=== PATIENT | male | born 1980 | race Caucasian/White ===

== ENCOUNTER → 2016-05-09 | Outpatient (CLI) | payer OTHER ==
[2016-05-09 08:06] LABS: Blood Urea Nitrogen 21 mg/dL (9-20); Non-African American GFR(MDRD) >60 (>60 ml/min/1.73 sqM)
--- NOTE | 2016-05-09 10:50 | MR ---
EXAMINATION TYPE: MR lumbar spine wo/w con DATE OF EXAM: 05/09/2016 9:28 AM COMPARISON: NONE HISTORY: lumbar stenosis, radiculopathy CONTRAST: 20 mL intravenous MultiHance. TECHNIQUE: Multiplanar, multisequence images of the lumbar spine were acquired. FINDINGS: L5-S1: There is a central disc herniation with moderate epidural space impression. This is slightly r ight of midline. Exiting nerve root compression or thecal sac compression is not identified. No spin al canal stenosis. No foraminal stenosis. Endplate changes are present.. L4-L5: There is a large left paracentral disc herniation. This is moderate anterior thecal sac compre ssion. No spinal canal stenosis. No foraminal stenosis. . L3-L4: No significant disc bulge or disc herniation. No spinal canal stenosis. No foraminal stenosi s. Neural foramen are patent.. L2-L3: No significant disc bulge or disc herniation. No spinal canal stenosis. No foraminal stenosi s. Neural foramen are patent.. L1-L2: No significant disc bulge or disc herniation. No spinal canal stenosis. No foraminal stenosi s. Neural foramen are patent.. T12-L1: No significant disc bulge or disc herniation. No spinal canal stenosis. No foraminal stenos is. Neural foramen are patent.. No abnormal enhancement. IMPRESSION: 1. Right paracentral disc herniation L5-S1 without nerve root compression or thecal sac compression. 2. Moderate left paracentral disc herniation with mild anterior thecal sac compression without stenos is.
== END | disposition home or self-care (01) ==
LOC: RADMRIMAIN 07:34
PROVIDERS: ATTEND Orthopaedic Surgery
DX: M51.16 Intervertebral disc disorders with radiculopathy, lumbar region (principal); M51.17 Intervertebral disc disorders with radiculopathy, lumbosacral region
CPT/HCPCS: 82565; 84520; 72158; 36415; A9577

== ENCOUNTER → 2016-05-22 | Outpatient (CLI) | payer OTHER ==
[2016-05-22 08:46] LABS: EKG EKG PERFORMED
[2016-05-22 08:49] LABS: Basophils # (A) 0.1 k/uL (0-0.2); Basophils % (A) 1 %; CH 28.2; CHCM 35.7; Eosinophils # (A) 0.1 k/uL (0-0.7); Eosinophils % (A) 2 %; HCT 48.6 % (39.0-53.0); HDW 3.31; HGB 16.4 gm/dL (13.0-17.5); Luc # (Auto) 0.08; Luc % (Auto) 1; Lymphocytes # (A) 1.5 k/uL (1.0-4.8); Lymphocytes % (A) 21 %; MCH 26.8 pg (25.0-35.0); MCHC 33.7 g/dL (31.0-37.0); MCV 79.4 fL (80.0-100.0); Mean Platelet Volume 8.2; Monocytes # (A) 0.4 k/uL (0-1.0); Monocytes % (A) 5 %; Neutrophils % (A) 71 %; RBC 6.11 m/uL (4.30-5.90); WBC (Perox) 7.01
[2016-05-22 09:05] LABS: Anion Gap 13 mmol/L; Carbon Dioxide 29 mmol/L (22-30); Chloride 103 mmol/L (98-107); Potassium 4.5 mmol/L (3.5-5.1); Sodium 145 mmol/L (137-145)
== END | disposition home or self-care (01) ==
LOC: LABPAT 08:27
PROVIDERS: ATTEND Orthopaedic Surgery
DX: Z01.810 Encounter for preprocedural cardiovascular examination (principal); M75.41 Impingement syndrome of right shoulder; I10 Essential (primary) hypertension
CPT/HCPCS: 36415; 80051; 85025; 93005

== ENCOUNTER 2016-05-27 06:05 | Day surgery (SDC) | payer OTHER ==
[2016-05-22 09:41] VITALS: BMI 36.5
--- NOTE | 2016-05-26 14:00 | HP ---
DATE OF ADMISSION: 05/27/2016 Mickey Jorgensen is a 36-year-old patient seen with progressive right shoulder pain. After having treatment options discussed, he elected to proceed with right shoulder arthroscopy. Consent regarding the procedure was obtained. Past medical history is hyperlipidemia, gastroesophageal reflux disease. His past surgical history is lumbar surgery. DAILY MEDICATIONS: 1. Atorvastatin. 2. Losartan. 3. Prilosec. 4. Prozac. SOCIAL HISTORY: Patient denies current tobacco use. Physical evaluation of right shoulder: Flexion is 160 degrees, abduction 150 degrees, external rotation is 50 degrees with some pain and weakness. There is tenderness along the anterolateral acromion rotator cuff insertion site. Impingement is positive at 100 degrees, distal neurovascular exam is intact. Radiographs of the right shoulder revealed a type 2 anterior acromion and MRI of the right shoulder revealed a partial rotator cuff tear. IMPRESSION: Right shoulder impingement with partial rotator cuff tear. PLAN: Right shoulder arthroscopy with subacromial decompression, possible arthroscopic rotator cuff repair and debridement.
[~2016-05-27 06:05] MED LIST: DEXAMETHASONE SOD PHOSPHATE 10 MG/ML 1 ML VIAL IV ONE; HYDROmorphone 1 MG/ML 1 ML SYRINGE IVP PRN; LACTATED RINGERS 1,000 ML IV SCH; LIDOCAINE 1% 20 ML VIAL (10MG/ML) FOR IV START INTRADERMA PRN; MIDAZOLAM 2 MG/2 ML VIAL IV PRN; ONDANSETRON 4 MG/2 ML VIAL IVP ONE; SCOPOLAMINE 1.5MG/72HR PATCH TRANSDERM ONE; ceFAZolin 2 GM in SODIUM CHLORIDE 0.9% 100 ML IVPB ONE; fentaNYL (PF) 50 MCG/ML 20 ML VIAL IVP PRN
[2016-05-27] MEDS ORDERED: NEOSTIGMINE 1 MG/ML 10 ML VIAL ONE (07:28)
[2016-05-27] MEDS ORDERED: PROPOFOL 10 MG/ML 20 ML VIAL IV ONE (07:28)
[2016-05-27] MEDS ORDERED: SUCCINYLCHOLINE CHLORIDE 100 MG/5 ML SYR IV ONE (07:28)
[2016-05-27] MEDS ORDERED: MIDAZOLAM 2 MG/2 ML VIAL ONE (07:28)
[2016-05-27] MEDS ORDERED: fentaNYL (PF) 50 MCG/ML 2 ML AMP ONE (07:28)
[2016-05-27] MEDS ORDERED: GLYCOPYRROLATE 0.2 MG/ML 2 ML VIAL ONE (07:28)
[2016-05-27] MEDS ORDERED: ROCURONIUM BROMIDE 10 MG/ML 10 ML VIAL IV ONE (07:28)
[2016-05-27] MEDS ORDERED: LIDOCAINE 2%-EPI 1:100,000 20 ML VIAL ONE (07:28)
[2016-05-27] MEDS ORDERED: LIDOCAINE 1% INJ 10MG/ML (20 ML MDV) ONE (07:28)
[2016-05-27] MEDS ORDERED: ROPIVACAINE 5 MG/ML 30 ML VIAL ONE (07:28)
[2016-05-27] MEDS ORDERED: LACTATED RINGERS 1,000 ML IV ONE (09:03)
[2016-05-27 09:43] VITALS: TEMP 98.1
--- NOTE | 2016-05-27 09:45 | P.OP ---
Date of Procedure: 05/27/16 Preoperative Diagnosis: Right shoulder impingement Postoperative Diagnosis: 1. Right shoulder rotator cuff tear 2. Right shoulder impingement 3. Right shoulder partial long head biceps tendon tear 4. Right shoulder superficial labral tear Procedure(s) Performed: 1. Right shoulder arthroscopic rotator cuff repair 2. Right shoulder arthroscopic subacromial decompression 3. Right shoulder arthroscopic biceps tenotomy 4. Right shoulder arthroscopic debridement labral tear Implants: 4-valeris peek anchors Anesthesia: GETA, regional (Shoulder block) Surgeon: Joel Estes Turpentine Farmer #1: Socrates Navarrete Estimated Blood Loss (ml): 10 Pathology: none sent Condition: stable Disposition: PACU Indications for Procedure: 36-year-old patient seen with progressive right shoulder pain. After having treatment options discussed, he elected to proceed with right shoulder arthroscopy. Operative Findings: See description of procedure Description of Procedure: Patient underwent a shoulder block by department of anesthesia. The patient was then taken to the operative suite. The patient underwent a general anesthetic by the department of anesthesia. The patient was placed into a lateral position and secured. There was appropriate padding of the bony prominence. Right shoulder was then prepped and draped in normal sterile orthopedic fashion. We placed the extremity in 10 pounds of longitudinal traction. A posterior incision was now made for a posterior working portal site. The trocar and cannula were inserted into the glenohumeral joint. Arthroscopy was initiated. Spinal needle was now inserted anteriorly, to ascertain the anterior working portal site. An incision was now made in that area, a trocar was inserted followed by a probe. There was some superficial tearing of the anterior superior labral area. Partial tearing and hyperemia long head biceps tendon was present. The glenohumeral joint itself appeared unremarkable. The inferior and posterior labrum were intact. There were no loose bodies. An arthroscopic biceps tenotomy was performed. I debrided the labral tear down to stable tissue. The residual labrum was probed and found to be stable. Instruments now removed from glenohumeral joint. Utilizing the posterior working portal site, the trocar and cannula were inserted into the subacromial space. Arthroscopy initiated. I made an incision 2 fingerbreadths lateral to the acromion. I introduced my trocar followed by my ArthroCare ablator. I now began ablating thick subacromial bursal tissue, which exposed the undersurface of the anterior acromion. This was diminished subacromial space. There was a very prominent anterior acromion. A motorized bur was introduced and a subacromial decompression was performed. I also excised some osteophytes off the inferior aspect of the distal clavicle. The AC joint was visualized. There was some mild arthritis but not enough toward a Staci procedure. I now turned my attention to the distal rotator cuff tendon area. There was a 2 cm tear along the posterior aspect of the distal supraspinatus tendon. I now debrided the margins getting down to stable tissue the overall tear was now about 2.5 cm but freely mobile over the footprint. I abraded the footprint with a motorized bur. I now made an mortgage operations manager portal site off the lateral acromion. I now introduced 2 medial anchors with 2 sutures each. I now passed all 8 limbs of suture through good bites of rotator cuff tendon. I now crisscrossed the sutures and inserted 2 lateral anchors compressing the tendon along the footprint very nicely. Residual suture limbs were clipped. The repair was probed and found to be stable. I injected 1 mL of Allogen into the footprint repair site. Instruments now removed from the portal sites. All portal sites were approximated with nylon suture. Sterile dressings were applied followed by a shoulder immobilizer. Juan Ramon MARTINES assisted with the procedure. The patient was awakened, transferred to a bed, and taken to recovery in stable condition.
[2016-05-27 12:31] VITALS: RESP 16
[2016-05-27 12:52] VITALS: BP 122/72; PULSE 88
== END 2016-05-27 12:53 | disposition home or self-care (01) ==
LOC: OR 06:05
PROVIDERS: ATTEND Orthopaedic Surgery
DX: M75.101 Unspecified rotator cuff tear or rupture of right shoulder, not specified as traumatic (principal); S46.111A Strain of muscle, fascia and tendon of long head of biceps, right arm, initial encounter; S43.491A Other sprain of right shoulder joint, initial encounter; M75.41 Impingement syndrome of right shoulder; I10 Essential (primary) hypertension; E78.5 Hyperlipidemia, unspecified; K21.9 Gastro-esophageal reflux disease without esophagitis; X58.XXXA Exposure to other specified factors, initial encounter; Z79.899 Other long term (current) drug therapy
CPT/HCPCS: 64415

== ENCOUNTER → 2017-06-29 | Outpatient (CLI) | payer OTHER ==
--- NOTE | 2017-06-29 18:05 | ECHOF ---
Referral Reason:R06.09 dyspnea on exertion MEASUREMENTS -------- HEIGHT: 172.7 cm WEIGHT: 113.4 kg BP: 141/86 RVIDd: 2.7 cm (< 3.3) IVSd: 1.2 cm (0.6 - 1.1) LVIDd: 5.6 cm (3.9 - 5.3) LVPWd: 1.2 cm (0.6 - 1.1) IVSs: 1.5 cm LVIDs: 3.6 cm LVPWs: 1.7 cm LAESV Index (A-L): 15.48 ml/m Ao Diam: 3.3 cm (2.0 - 3.7) AV Cusp: 2.3 cm (1.5 - 2.6) LA Diam: 3.4 cm (2.7 - 3.8) MV EXCURSION: 26.725 mm (> 18.000) MV EF SLOPE: 182 mm/s (70 - 150) EPSS: 0.5 cm MV E Octavio: 0.81 m/s MV DecT: 300 ms MV A Octavio: 0.32 m/s MV E/A Ratio: 2.52 RAP: 5.00 mmHg RVSP: 21.41 mmHg FINDINGS -------- Sinus rhythm. This was a technically adequate study. The left ventricular size is normal. There is mild concentric left ventricular hypertrophy. Overa ll left ventricular systolic function is normal with, an EF between 55 - 60 %. The right ventricle is normal in size and function. Normal LA size by volume 22+/-6 ml/m2. The right atrium is normal in size. The aortic valve is trileaflet, and appears structurally normal. No aortic stenosis or regurgitation. The mitral valve is normal. There is trace mitral regurgitation. Trace tricuspid regurgitation present. Right ventricular systolic pressure is normal at < 35 mmHg. There is no evidence of pulmonary hypertension. Trace/mild (physiologic) pulmonic regurgitation. The aortic root size is normal. Normal inferior vena cava with normal inspiratory collapse consistent with estimated right atrial pre ssure of 5 mmHg. The pericardium is normal. There is no pericardial effusion. CONCLUSIONS -------- 1. Sinus rhythm. 2. This was a technically adequate study. 3. The left ventricular size is normal. 4. There is mild concentric left ventricular hypertrophy. 5. Overall left ventricular systolic function is normal with, an EF between 55 - 60 %. 6. Normal LA size by volume 22+/-6 ml/m2. 7. The aortic valve is trileaflet, and appears structurally normal. No aortic stenosis or regurgitati on. 8. There is trace mitral regurgitation. 9. Trace tricuspid regurgitation present. 10. Right ventricular systolic pressure is normal at < 35 mmHg. 11. There is no evidence of pulmonary hypertension. 12. Trace/mild (physiologic) pulmonic regurgitation. 13. The aortic root size is normal. 14. There is no pericardial effusion. ASSEMBLY INSPECTOR HELPER: Dany Chadwick RDCS
== END | disposition home or self-care (01) ==
LOC: RADECHMAIN 15:45
PROVIDERS: ATTEND Family Medicine
DX: I08.8 Other rheumatic multiple valve diseases (principal)
CPT/HCPCS: 93306

== ENCOUNTER → 2017-10-22 | Outpatient (CLI) | payer OTHER ==
[2017-10-22 15:56] LABS: Basophils # (A) 0.1 k/uL (0-0.2); Basophils % (A) 1 %; Eosinophils # (A) 0.2 k/uL (0-0.7); Eosinophils % (A) 2 %; HGB 17.6 gm/dL (13.0-17.5); Lymphocytes % (A) 23 %; MCHC 33.9 g/dL (31.0-37.0); MCV 79.6 fL (80.0-100.0); Mean Platelet Volume 7.4; Monocytes # (A) 0.4 k/uL (0-1.0); Monocytes % (A) 5 %; Neutrophils # (A) 5.8 k/uL (1.3-7.7); Neutrophils % (A) 68 %; Platelet Count 189 k/uL (150-450); RBC 6.52 m/uL (4.30-5.90); RDW 15.7 % (11.5-15.5); WBC 8.6 k/uL (3.8-10.6)
[2017-10-22 16:14] LABS: ALT 70 U/L (21-72); AST 33 U/L (17-59); Albumin 4.6 g/dL (3.5-5.0); Alkaline Phosphatase 50 U/L (38-126); Anion Gap 13 mmol/L; Blood Urea Nitrogen 16 mg/dL (9-20); Calcium 9.2 mg/dL (8.4-10.2); Carbon Dioxide 28 mmol/L (22-30); Chloride 101 mmol/L (98-107); Cholesterol 161 mg/dL (<200); Creatine Kinase 191 U/L (55-170); Glucose 95 mg/dL (74-99); HDL Cholesterol 29 mg/dL (40-60); LDL Cholesterol,Calculated 74 mg/dL (0-99); Potassium 4.3 mmol/L (3.5-5.1); Sodium 142 mmol/L (137-145); Total Bilirubin 0.6 mg/dL (0.2-1.3); Triglycerides 288 mg/dL (<150)
[2017-10-22 16:44] LABS: Prostate Specific Antigen 0.75 ng/mL (0.00-4.00)
== END | disposition home or self-care (01) ==
LOC: LABWHC1 15:26
PROVIDERS: ATTEND Nurse Practitioner Adult Health
DX: I10 Essential (primary) hypertension (principal); E23.0 Hypopituitarism; E78.5 Hyperlipidemia, unspecified; Z77.011 Contact with and (suspected) exposure to lead
CPT/HCPCS: 36415; 80053; 80061; 82550; 83655; 84153; 85025

== ENCOUNTER → 2020-05-03 | Outpatient (CLI) | payer OTHER ==
--- NOTE | 2020-05-03 10:34 | XR ---
Right knee HISTORY: Trauma and pain 3 views the right knee Bone mineralization, joint spaces and alignment are maintained. No evident sizable joint effusion, th ere may be minimal suprapatellar joint fluid. IMPRESSION: No fracture or dislocation.
== END | disposition home or self-care (01) ==
LOC: RADXRMAIN 10:08
PROVIDERS: ATTEND Emergency Medicine
DX: S83.91XA Sprain of unspecified site of right knee, initial encounter (principal)

== ENCOUNTER → 2020-05-15 | Outpatient (CLI) | payer OTHER ==
--- NOTE | 2020-05-15 09:59 | XR ---
Right knee HISTORY: S83.91XD 3 views the right knee, correlation to prior exam dated 05/03/2020 There is no interval change. Subtle suprapatellar density noted. IMPRESSION: No fracture or dislocation. Possible joint effusion, consider knee MRI
== END | disposition home or self-care (01) ==
LOC: RADXRMAIN 09:19
PROVIDERS: ATTEND Emergency Medicine
DX: S83.91XD Sprain of unspecified site of right knee, subsequent encounter (principal)

== ENCOUNTER 2021-01-24 11:52 | Emergency (ER) | payer OTHER ==
[2021-01-24] MEDS ORDERED: ACETAMINOPHEN TAB 500 MG TAB PO STA (12:17)
[2021-01-24] MEDS ORDERED: IBUPROFEN 600 MG TAB PO STA (12:17)
[2021-01-24] MEDS ORDERED: SODIUM CHLORIDE 0.9% 1,000 ML IV STA (12:17)
[2021-01-24 13:10] LABS: ALT 37 U/L (4-49); AST 49 U/L (17-59); African American GFR (CKD) >90 (>60 ml/min/1.73 sqM); Albumin 3.8 g/dL (3.5-5.0); Alkaline Phosphatase 54 U/L (38-126); Anion Gap 11 mmol/L; Blood Urea Nitrogen 22 mg/dL (9-20); Calcium 8.6 mg/dL (8.4-10.2); Carbon Dioxide 27 mmol/L (22-30); Chloride 98 mmol/L (98-107); Glucose 140 mg/dL (74-99); Non-African American GFR(CKD) >90 (>60 ml/min/1.73 sqM); Potassium 3.3 mmol/L (3.5-5.1); Sodium 136 mmol/L (137-145); Total Bilirubin 0.8 mg/dL (0.2-1.3); Total Protein 6.4 g/dL (6.3-8.2)
[2021-01-24 13:20] LABS: Basophils % (A) 0 %; Eosinophils % (A) 0 %; HCT 43.7 % (39.0-53.0); HGB 15.6 gm/dL (13.0-17.5); Hyperchromasia Slight; Lymphocytes # (A) 0.7 k/uL (1.0-4.8); Lymphocytes % (A) 6 %; MCH 27.5 pg (25.0-35.0); MCHC 35.7 g/dL (31.0-37.0); MCV 77.2 fL (80.0-100.0); Mean Platelet Volume 7.8; Monocytes # (A) 0.3 k/uL (0-1.0); Monocytes % (A) 2 %; Neutrophils # (A) 9.9 k/uL (1.3-7.7); Neutrophils % (A) 91 %; Platelet Count 234 k/uL (150-450); Poikilocytosis Slight; RBC 5.66 m/uL (4.30-5.90); RDW 13.5 % (11.5-15.5); WBC 10.9 k/uL (3.8-10.6)
--- NOTE | 2021-01-24 13:20 | XR ---
EXAMINATION TYPE: XR chest 1V DATE OF EXAM: 01/24/2021 COMPARISON: NONE HISTORY: Shortness of breath TECHNIQUE: Single frontal view of the chest is obtained. FINDINGS: Interstitial pattern with patchy areas of bilateral infiltrate. No pleural effusion or pne umothorax. Heart size normal. Osseous structures appear intact. IMPRESSION: Correlate for interstitial pneumonitis with multifocal pneumonia.
[2021-01-24] MEDS ORDERED: ALBUTEROL HFA INHALER INHALATION STA (14:27)
[2021-01-24] MEDS ORDERED: CASIRIVIMAB/IMDEVIMAB (EUA) 1,200 MG in SODIUM CHLORIDE 0.9% 100 ML IVPB ONE (15:00)
[2021-01-24] MEDS ORDERED: SODIUM CHLORIDE 0.9% 50 ML IVPB ONE (15:30)
--- NOTE | 2021-01-24 16:07 | ED ---
SOB HPI - General Chief Complaint: Shortness of Breath Stated Complaint: Fever/Cough Time Seen by Provider: 01/24/21 11:56 Source: patient, EMS, RN notes reviewed Mode of arrival: EMS Limitations: no limitations - History of Present Illness Initial Comments: Patient is a 40-year-old male with history of hypertension, presenting to emergency Department via EMS with concerns of a cough and worsening shortness of breath. Patient tested positive for Covid 3 days ago, his symptoms began 3 days ago as well. He states his symptoms, if him hard and fast with body aches, fever, chills and a cough. He went to get tested and was positive. He states today the coughing got much worse and he felt really short of breath. He also has been battling fevers at home and does not feel like they are coming down with Tylenol and Motrin. He last took Tylenol earlier this morning, Motrin was about 3 hours ago however he only took 200 mg of Motrin and only 500 mg of Tylenol. He denies any chest pains, no abdominal pain, no nausea or vomiting, no rashes. He is a former smoker, stopped about 5 years ago, no history of asthma. Patient denies any further complaints. Upon arrival to the ER, his temperatures 103.0, pulse is 110, 90% on room air. - Related Data Home Medications Medication Instructions Recorded Confirmed Cholecalciferol [Vitamin D3 (25 5,000 unit PO DAILY 01/08/15 01/24/21 Mcg = 1000 Iu)] Albuterol Inhaler [Ventolin Hfa 2 puff INHALATION RT-Q4H PRN 01/24/21 01/24/21 Inhaler] Azithromycin [Zithromax] 500 mg PO DAILY 01/24/21 01/24/21 Budesonide [Pulmicort Flexhaler] 2 puff INHALATION RT-BID 01/24/21 01/24/21 Celecoxib [CeleBREX] 200 mg PO DAILY 01/24/21 01/24/21 Dexamethasone 6 mg PO DAILY 01/24/21 01/24/21 Dextroamphetamine/Amphetamine 30 mg PO DAILY 01/24/21 01/24/21 [Adderall Xr] Famotidine 20 mg PO BID PRN 01/24/21 01/24/21 Losartan/Hydrochlorothiazide 1 tab PO DAILY 01/24/21 01/24/21 [Losartan-Hctz 100-25 mg Tab] NIFEdipine [Procardia XL] 60 mg PO HS 01/24/21 01/24/21 Omeprazole 40 mg PO DAILY 01/24/21 01/24/21 buPROPion XL [Wellbutrin XL] 150 mg PO DAILY 01/24/21 01/24/21 hydrOXYzine pamoate [hydrOXYzine 25 mg PO HS 01/24/21 01/24/21 PAMOATE] Previous Rx's Medication Instructions Recorded Dexamethasone [Decadron] 6 mg PO DAILY 7 Days #7 tablet 01/24/21 Allergies Allergy/AdvReac Type Severity Reaction Status Date / Time No Known Allergies Allergy Verified 01/24/21 13:00 Review of Systems ROS Statement: Those systems with pertinent positive or pertinent negative responses have been documented in the HPI. ROS Other: All systems not noted in ROS Statement are negative. Past Medical History Past Medical History: GERD/Reflux, Hyperlipidemia, Hypertension Additional Past Medical History / Comment(s): LOW VITAMIN D. DIAGNOSED WITH HPV History of Any Multi-Drug Resistant Organisms: None Reported Past Surgical History: Back Surgery, Cardiac Ablation Additional Past Surgical History / Comment(s): LAMINECTOMY. 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 Patient is nontoxic and in no acute distress. HEAD: Atraumatic, normocephalic. EYES: Pupils equal round and reactive to light, extraocular movements intact, sclera anicteric, conjunctiva are normal. Eyelids were unremarkable. ENT: TMs normal, nares patent, oropharynx clear without exudates. Moist mucous membranes. NECK: Normal range of motion, supple without lymphadenopathy or JVD. LUNGS: Unlabored respirations. Breath sounds clear to auscultation bilaterally and equal. No wheezes rales or rhonchi. HEART: Mildly tachycardic rate and rhythm without murmurs, rubs or gallops. ABDOMEN: Soft, nontender, normoactive bowel sounds. No guarding, no rebound. No masses appreciated. : Deferred MUSCULOSKELETAL: Normal extremities with adequate strength and normal range of motion, no pitting or edema. No clubbing or cyanosis. NEUROLOGICAL: Patient is alert and oriented x 3. Symmetrical smile. Normal speech, normal gait. PSYCH: Normal mood, normal affect. SKIN: Warm, Dry, normal turgor, no rashes or lesions noted. Limitations: no limitations Course Vital Signs 01/24/21 01/24/21 01/24/21 11:54 12:18 13:54 Temperature 103.0 F H 99.9 F H Pulse Rate 110 H 90 Respiratory 22 22 20 Rate Blood Pressure 100/73 120/75 O2 Sat by Pulse 90 L 96 Oximetry 01/24/21 01/24/21 13:56 17:15 Temperature 98.5 F Pulse Rate 70 Respiratory 18 Rate Blood Pressure 113/75 O2 Sat by Pulse 91 L 96 Oximetry Medical Decision Making - Medical Decision Making Patient is a 40-year-old male with history of hypertension, presenting via EMS with cough and shortness of breath. He tested positive for Covid 3 days ago, his symptoms began 3 days ago as well. He did arrive febrile, slightly tachycardia at 110, 90% on room air. Patient has not been taking enough Tylenol or Motrin, did give him a full dose of Tylenol and Motrin upon arrival and some fluids. His labs are within normal limits. Chest x-ray showing interstitial pneumonitis with multifocal pneumonia. Vitals did improve after the fluids and Tylenol and Motrin, his fevers down to 99.9, is 91% on room air. He states he feels much better. Patient does qualify for monoclonal antibodies, no adverse effect afterwards. Patient received albuterol inhaler, vitals were rechecked, are all within normal limits. Patient is stable for discharge. I will send him home with steroid prescription. He will continue with inhaler as needed. He is agreeable to this. Patient stable for discharge. Return parameters were discussed with him and he verbalized understanding. Case discussed with Dr. Lamas. - Lab Data Result diagrams: 01/24/21 12:37 01/24/21 12:37 Lab Results 01/24/21 01/24/21 Range/Units 12:37 12:37 WBC 10.9 H (3.8-10.6) k/uL RBC 5.66 (4.30-5.90) m/uL Hgb 15.6 (13.0-17.5) gm/dL Hct 43.7 (39.0-53.0) % MCV 77.2 L (80.0-100.0) fL MCH 27.5 (25.0-35.0) pg MCHC 35.7 (31.0-37.0) g/dL RDW 13.5 (11.5-15.5) % Plt Count 234 (150-450) k/uL MPV 7.8 Neutrophils % 91 % Lymphocytes % 6 % Monocytes % 2 % Eosinophils % 0 % Basophils % 0 % Neutrophils # 9.9 H (1.3-7.7) k/uL Lymphocytes # 0.7 L (1.0-4.8) k/uL Monocytes # 0.3 (0-1.0) k/uL Eosinophils # 0.0 (0-0.7) k/uL Basophils # 0.0 (0-0.2) k/uL Hyperchromasia Slight Poikilocytosis Slight Sodium 136 L (137-145) mmol/L Potassium 3.3 L (3.5-5.1) mmol/L Chloride 98 (98-107) mmol/L Carbon Dioxide 27 (22-30) mmol/L Anion Gap 11 mmol/L BUN 22 H (9-20) mg/dL Creatinine 0.86 (0.66-1.25) mg/dL Est GFR (CKD-EPI)AfAm >90 (>60 ml/min/1.73 sqM) Est GFR (CKD-EPI)NonAf >90 (>60 ml/min/1.73 sqM) Glucose 140 H (74-99) mg/dL Calcium 8.6 (8.4-10.2) mg/dL Total Bilirubin 0.8 (0.2-1.3) mg/dL AST 49 (17-59) U/L ALT 37 (4-49) U/L Alkaline Phosphatase 54 (38-126) U/L Total Protein 6.4 (6.3-8.2) g/dL Albumin 3.8 (3.5-5.0) g/dL Disposition Clinical Impression: Pneumonia due to COVID-19 virus Disposition: HOME SELF-CARE Condition: Stable Instructions (If sedation given, give patient instructions): Coronavirus Disease 2019 (COVID-19) Additional Instructions: Please return to the Emergency Department if symptoms worsen or any other concerns. Recommend continuing to alternate between Tylenol (1,000mg) and Motrin (600mg) for fever control, every 4 hours as needed. Use inhaler as needed for shortness of breath or cough. Take steroids as prescribed. Prescriptions: Dexamethasone [Decadron] 6 mg PO DAILY 7 Days #7 tablet Is patient prescribed a controlled substance at d/c from ED?: No Referrals: Dipak Burr MD [Primary Care Provider] - 1-2 days Time of Disposition: 17:31
[2021-01-24 17:22] VITALS: BP 113/75; PULSE 70; RESP 18; TEMP 98.5
== END 2021-01-24 17:37 | disposition home or self-care (01) ==
LOC: EC 11:52
DX: U07.1 COVID-19 (principal); J12.82 Pneumonia due to coronavirus disease 2019; I10 Essential (primary) hypertension; E78.5 Hyperlipidemia, unspecified; K21.9 Gastro-esophageal reflux disease without esophagitis
CPT/HCPCS: 99285; 96365; 96361 ×2; 36415; 94640; 80053; 85025; 71045; Q0243

== ENCOUNTER → 2021-02-07 | Outpatient (CLI) | payer OTHER ==
--- NOTE | 2021-02-07 17:26 | US ---
EXAMINATION TYPE: US thyroid st tissue head/neck DATE OF EXAM: 02/07/2021 COMPARISON: NONE CLINICAL HISTORY: I88.9 Nonspecific lymphadenitis, unspecified. Palpables are noted at bilateral uppe r neck. Bilateral neck scanned at patient's palpables: lymph node is seen superior to right thyroid nodule = 1.8 x 1.0 x 0.5cm and lymph node is imaged superior to left thyroid = 1.2 x 1.0 x 0.4cm. IMPRESSION: Lymph nodes as discussed above.
== END | disposition home or self-care (01) ==
LOC: RADUSWWP 16:09
PROVIDERS: ATTEND Family Medicine
DX: E04.1 Nontoxic single thyroid nodule (principal)
CPT/HCPCS: 76536

== ENCOUNTER → 2021-02-08 | Outpatient (CLI) | payer OTHER ==
--- NOTE | 2021-02-08 10:56 | CT ---
EXAMINATION TYPE: CT angio chest DATE OF EXAM: 02/08/2021 COMPARISON: None HISTORY: SOB, pneumonia, recent Covid CT DLP: 439.7 mGycm CONTRAST: CT chest with contrast and 3D reconstruction with MIP imaging is performed with IV Contrast, patient injected with 100 mL of Isovue 370. Contrast-enhanced CT of the chest was performed through the course of the pulmonary arteries with vernell g and mediastinal window settings submitted. 3D reconstruction with MIP imaging was also performed. PULMONARY ARTERIES: The pulmonary arteries and their major tributaries are patent. I do not see sowmya dence for sizable filling defect to suggest pulmonary embolic process. LUNGS: Groundglass and interstitial infiltrates are seen bilaterally compatible with recent Covid 19 pneumonia. No pulmonary nodule or mass is detected. No pleural effusion. MEDIASTINUM: Thoracic aorta is of normal caliber,however, evaluation is limited given timing of the contrast bolus. If there is concern for thoracic aortic pathology consider GALLITO. Correlate clinicall y . The heart is not enlarged. No evidence for mediastinal mass. No mediastinal lymph nodes greater than 1cm. HILAR STRUCTURES: No evidence for mass. No hilar lymph nodes greater than 1 cm. UPPER ABDOMEN: No significant abnormality is seen. IMPRESSION: 1. No evidence for Pulmonary embolism at this time. 2.Groundglass and interstitial infiltrates are seen bilaterally compatible with recent Covid 19 pneum onia.
[2021-02-08 11:03] LABS: Basophils % (A) 0 %; Eosinophils # (A) 0.1 k/uL (0-0.7); Eosinophils % (A) 1 %; HGB 15.6 gm/dL (13.0-17.5); Lymphocytes # (A) 1.1 k/uL (1.0-4.8); Lymphocytes % (A) 13 %; MCH 28.1 pg (25.0-35.0); MCHC 34.8 g/dL (31.0-37.0); MCV 80.7 fL (80.0-100.0); Mean Platelet Volume 7.5; Monocytes # (A) 0.8 k/uL (0-1.0); Monocytes % (A) 9 %; Neutrophils # (A) 6.7 k/uL (1.3-7.7); Neutrophils % (A) 76 %; Platelet Count 225 k/uL (150-450); RBC 5.57 m/uL (4.30-5.90); RDW 14.6 % (11.5-15.5); WBC 8.8 k/uL (3.8-10.6)
[2021-02-08 11:05] LABS: ALT 69 U/L (4-49); AST 24 U/L (17-59); African American GFR (CKD) >90 (>60 ml/min/1.73 sqM); Albumin 3.6 g/dL (3.5-5.0); Alkaline Phosphatase 51 U/L (38-126); Anion Gap 7 mmol/L; Blood Urea Nitrogen 20 mg/dL (9-20); Calcium 9.1 mg/dL (8.4-10.2); Carbon Dioxide 31 mmol/L (22-30); Chloride 99 mmol/L (98-107); Glucose 116 mg/dL (74-99); Non-African American GFR(CKD) >90 (>60 ml/min/1.73 sqM); Potassium 4.1 mmol/L (3.5-5.1); Sodium 137 mmol/L (137-145); Total Bilirubin 0.8 mg/dL (0.2-1.3); Total Protein 6.3 g/dL (6.3-8.2)
== END | disposition home or self-care (01) ==
LOC: RADCTMAIN 10:08
PROVIDERS: ATTEND Family Medicine
DX: U07.1 COVID-19 (principal); J12.82 Pneumonia due to coronavirus disease 2019
CPT/HCPCS: 80053; 85025; 71275; 36415; Q9967

== ENCOUNTER → 2021-09-10 | Outpatient (CLI) | payer OTHER ==
--- NOTE | 2021-09-10 11:23 | XR ---
EXAMINATION TYPE: XR shoulder complete LT DATE OF EXAM: 09/10/2021 COMPARISON: NONE HISTORY: Pain TECHNIQUE: Shoulder examined in 3 views FINDINGS: The humeral head articulates with the glenoid. The acromio-clavicular junction is normal. No acute fractures or dislocations are evident. A follow up study can be performed 7-10 days from acute trauma for continued pain. IMPRESSION: 1. No acute osseous abnormality left shoulder
--- NOTE | 2021-09-10 11:24 | XR ---
EXAMINATION TYPE: XR elbow complete LT DATE OF EXAM: 09/10/2021 COMPARISON: None HISTORY: Injury TECHNIQUE: 3 view left elbow FINDINGS: Radius lines terminate at the humerus. No acute fracture or dislocation is evident. A maria luisa h bordered ossification is along the radial aspect of the distal humerus likely is a secondary ossifi cation center. No elevation of the anterior fat pad is evident. No elevation of the posterior fat pad is present. Follow up exams can be performed 7-10 days acute trauma for continued pain. IMPRESSION: 1. No acute osseous abnormalities left elbow
== END | disposition home or self-care (01) ==
LOC: RADXRMAIN 10:50
PROVIDERS: ATTEND Emergency Medicine
DX: M25.512 Pain in left shoulder (principal); S59.902A Unspecified injury of left elbow, initial encounter

== ENCOUNTER → 2021-11-28 | Outpatient (CLI) | payer OTHER ==
--- NOTE | 2021-11-29 01:35 | MR ---
EXAMINATION TYPE: MR shoulder LT wo con DATE OF EXAM: 11/28/2021 COMPARISON: None HISTORY: Left shoulder pain since 09-07-21 due to work related injury. Multiplanar multiecho imaging of the left shoulder with no contrast. On the T2 images there is increased signal on both sides of the AC joint consistent with mild bone br uise. The biceps tendon is intact. Glenoid monika appear intact. No fracture line seen. The humeral he ad is intact. The supraspinatus tendon appears intact. No evidence of full-thickness tear. The infras pinatus tendon is intact. No significant subacromial impingement. No sign of any significant shoulder joint effusion. IMPRESSION: There is evidence of some bone bruising at the AC joint. No fracture seen. No evidence of rotator cuf f tear.
== END | disposition home or self-care (01) ==
LOC: RADMRIMAIN 19:04
PROVIDERS: ATTEND Orthopaedic Surgery
DX: S40.012A Contusion of left shoulder, initial encounter (principal)

== ENCOUNTER → 2022-02-12 | Outpatient (CLI) | payer OTHER ==
[2022-02-12 23:23] LABS: Basophils # (A) 0.03 X 10*3/uL (0.00-0.10); Basophils % (A) 0.3 %; Eosinophils # (A) 0.06 X 10*3/uL (0.04-0.35); Eosinophils % (A) 0.7 %; HCT 47.6 % (39.6-50.0); HGB 16.5 g/dL (13.0-17.0); Immature Grans, Automated 0.3 %; Lymphocytes # (A) 1.64 X 10*3/uL (0.90-5.00); Lymphocytes % (A) 18.3 %; MCH 27.4 pg (27.0-32.0); MCHC 34.7 g/dL (32.0-37.0); MCV 78.9 fL (80.0-97.0); Mean Platelet Volume 10.6 fL (9.5-12.2); Monocytes # (A) 0.53 X 10*3/uL (0.20-1.00); Monocytes % (A) 5.9 %; NRBC Per 100 WBC 0 /100 WBCS (0.0-0.0); Neutrophils # (A) 6.67 X 10*3/uL (1.80-7.70); Neutrophils % (A) 74.5 %; Platelet Count 276 X 10*3/uL (140-440); RBC 6.03 X 10*6/uL (4.40-5.60); RDW 13.7 % (11.5-14.5); WBC 8.96 X 10*3/uL (4.50-10.00)
[2022-02-13 00:17] LABS: African American GFR (CKD) 112.7 (60.0-200.0); Anion Gap 13.4 mmol/L (10.00-18.00); BUN/Creat Ratio 13.81 Ratio (12.00-20.00); Blood Urea Nitrogen 13.4 mg/dL (9.0-27.0); Calcium 9.8 mg/dL (8.7-10.3); Carbon Dioxide 29.3 mmol/L (20.0-27.5); Non-African American GFR(CKD) 97.2 (60.0-200.0); Potassium 4.1 mmol/L (3.5-5.5)
== END | disposition home or self-care (01) ==
LOC: LABPAT 15:07
PROVIDERS: ATTEND Orthopaedic Surgery
DX: Z01.812 Encounter for preprocedural laboratory examination (principal); M75.42 Impingement syndrome of left shoulder
CPT/HCPCS: 36415; 80048; 85025

== ENCOUNTER 2022-02-27 06:06 | Day surgery (SDC) | payer OTHER ==
[2022-02-24 08:43] VITALS: BMI 33.4
--- NOTE | 2022-02-26 11:34 | P.HPOR ---
History of Present Illness H&P Date: 02/26/22 Chief Complaint: Left shoulder pain The patient is a 41-year-old [id number] male who presents with left shoulder pain after an injury at work 09/09/2021. He is using a pipe wrench when he felt a pull in his shoulder. He said pain ever since. He tried therapy in addition to medications and injections without much relief. He continues to have pain with overhead activity and at night. Review of Systems As per HPI Past Medical History Past Medical History: GERD/Reflux, Hyperlipidemia, Hypertension, Osteoarthritis (OA) Additional Past Medical History / Comment(s): LOW VITAMIN D. DIAGNOSED WITH HPV. HX WPW AND SVT History of Any Multi-Drug Resistant Organisms: None Reported Past Surgical History: Back Surgery, Cardiac Ablation, Orthopedic Surgery (Right rotator cuff repair) Additional Past Surgical History / Comment(s): LAMINECTOMY. CARDIAC ABLATION FOR WPW AND SVT 01-10-15. RT SHOULDER SX Past Anesthesia/Blood Transfusion Reactions: No Reported Reaction Smoking Status: Former smoker - Past Family History Father Family Medical History: No Reported History Mother Family Medical History: Hypertension Medications and Allergies Home Medications Medication Instructions Recorded Confirmed Type Albuterol Inhaler [Ventolin Hfa 2 puff INHALATION RT-Q4H PRN 01/24/21 02/24/22 History Inhaler] Budesonide [Pulmicort Flexhaler] 2 puff INHALATION RT-BID 01/24/21 02/24/22 History Celecoxib [CeleBREX] 200 mg PO DAILY 01/24/21 02/24/22 History Dextroamphetamine/Amphetamine 30 mg PO DAILY 01/24/21 02/24/22 History [Adderall Xr] Famotidine 20 mg PO BID PRN 01/24/21 02/24/22 History Losartan/Hydrochlorothiazide 1 tab PO DAILY 01/24/21 02/24/22 History [Losartan-Hctz 100-25 mg Tab] NIFEdipine [Procardia XL] 60 mg PO HS 01/24/21 02/24/22 History Omeprazole 40 mg PO DAILY 01/24/21 02/24/22 History buPROPion XL [Wellbutrin XL] 150 mg PO DAILY 01/24/21 02/24/22 History hydrOXYzine pamoate [hydrOXYzine 25 mg PO HS 01/24/21 02/24/22 History PAMOATE] Allergies Allergy/AdvReac Type Severity Reaction Status Date / Time No Known Allergies Allergy Verified 02/24/22 08:31 Physical Examination - Shoulder left Tenderness with palpation: anterior, ACJ Pain: with abduction, with forward flexion ROM: forward flexion: 140 degrees ROM: internal rotation: low thoracic ROM: external rotation: 40 degrees Strength: abduction: 5/5 Strength: external rotation: 5/5 Tests: internal impingement tests: positive Results The patient's a well-developed well-nourished male approximately 5 foot 8, 220 pounds of endomorphic habitus. HEENT exam is nonfocal, neck is supple. He's tender about the left subacromial space along with the acromioclavicular joint. He has a positive impingement, positive Neer, and positive speed test. His distal neurovascular exam appears intact in left upper extremity. - Diagnostic results Shoulder MRI: image reviewed (Left shoulder MRI shows evidence of increased signal involving the acromioclavicular joint. The rotator cuff appears to be intact. There is some increased signal.) Assessment and Plan Assessment: Left acromioclavicular joint sprain/synovitis Left shoulder impingement/rotator cuff strain/tendinitis Plan: I talked with the patient regarding his condition along with treatment options. At this point he remains quite symptomatic despite attempted conservative measures. After thorough discussion as proceed with surgery. We'll plan to proceed with arthroscopic evaluation with probable subacromial decompression along with distal clavicular resection. Time with Patient: Less than 30
[~2022-02-27 06:06] MED LIST changes: -DEXAMETHASONE SOD PHOSPHATE 10 MG/ML 1 ML VIAL IV ONE; +DEXAMETHASONE SOD PHOSPHATE 4 MG/ML 1 ML VIAL IV ONE; -HYDROmorphone 1 MG/ML 1 ML SYRINGE IVP PRN; -LIDOCAINE 1% 20 ML VIAL (10MG/ML) FOR IV START INTRADERMA PRN; +SCOPOLAMINE 1 MG/72 HR PATCH TRANSDERM ONE; -SCOPOLAMINE 1.5MG/72HR PATCH TRANSDERM ONE; -ceFAZolin 2 GM in SODIUM CHLORIDE 0.9% 100 ML IVPB ONE; -fentaNYL (PF) 50 MCG/ML 20 ML VIAL IVP PRN
[2022-02-27 07:05] VITALS: TEMP 97.2
[2022-02-27] MEDS ORDERED: PROPOFOL 10 MG/ML 20 ML VIAL IV ONE (08:10)
[2022-02-27] MEDS ORDERED: WATER FOR INJECTION, STERILE 10 ML VIAL IV ONE (08:10)
[2022-02-27] MEDS ORDERED: PHENYLEPHRINE-0.9% NACL SYG 1,000 MCG/10 ML SYRINGE ONE (08:10)
[2022-02-27] MEDS ORDERED: fentaNYL (PF) 50 MCG/ML 2 ML AMP ONE (08:10)
[2022-02-27] MEDS ORDERED: ROPIVACAINE 5 MG/ML 30 ML VIAL ONE (08:10)
[2022-02-27] MEDS ORDERED: NEOSTIGMINE 1 MG/ML 10 ML VIAL ONE (08:10)
[2022-02-27] MEDS ORDERED: ROCURONIUM 10 MG/ML (5 ML VIAL) IV ONE (08:10)
[2022-02-27] MEDS ORDERED: LIDOCAINE 2% INJ 20 MG/ML (2 ML VIAL) ONE (08:10)
[2022-02-27] MEDS ORDERED: ePHEDrine 50 MG/ML 1 ML VIAL ONE (08:10)
[2022-02-27] MEDS ORDERED: SUCCINYLCHOLINE CHLORIDE 200 MG/10 ML VIAL IV ONE (08:10)
[2022-02-27] MEDS ORDERED: GLYCOPYRROLATE 0.2 MG/ML 2 ML VIAL ONE (08:10)
[2022-02-27] MEDS ORDERED: EPINEPHrine (PF) 1 ML in SODIUM CHLORIDE 0.9% IRRIGATIO 3,000 ML IRRIGATION ONE ×8 (08:15)
--- NOTE | 2022-02-27 08:26 | P.ANPRN ---
Procedure Note - Anesthesia - Nerve Block Performed Left Interscalene Time Out Performed: Yes (07:39) Date of Procedure: 02/27/22 Procedure Start Time: :39 Procedure Stop Time: :45 Location of Patient: PreOp Indication: Acute Post-Operative Pain, Requested by Surgeon (DR Pemberton) Sedation Type: Sedate with meaningful contact maintained Preparation: Sterile Prep Position: Supine Catheter: None Needle Types: Pajunk Needle Gauge: Other (see comment) (22g) Ultrasound used to visualize needle placement: Yes Ultrasound used to observe medication spread: Yes Injectate: 0.5% Ropivacaine (see comment for volume) (20cc) Blood Aspirated: No Pain Paresthesia on Injection Noted: No Resistance on Injection: Normal Image Stored and Saved: Yes Events: Uneventful and Well Tolerated
[2022-02-27] MEDS ORDERED: LACTATED RINGERS 1,000 ML IV ONE (09:07)
--- NOTE | 2022-02-27 09:21 | P.OP ---
Date of Procedure: 02/27/22 Preoperative Diagnosis: Left rotator cuff tendinitis/strain Left acromioclavicular joint synovitis Postoperative Diagnosis: Same Procedure(s) Performed: Left shoulder arthroscopic subacromial decompression/distal clavicular resection Anesthesia: lois CACERES Surgeon: Terrence Pemberton Shop Estimator #1: Socrates Navarrete Estimated Blood Loss (ml): 10 Pathology: none sent Condition: stable Disposition: PACU Indications for Procedure: The patient's a 42-year-old male who presents with persistent left shoulder pain after an injury at work several months ago despite conservative treatment. A discussion of the risks and benefits of operative intervention versus continued conservative measures was made with the patient. He opted to proceed with surgery. Operative risks to include infection, neurovascular injury, development of blood clots, possible incomplete resolution of symptoms, possible worsening symptoms and need for subsequent procedures was discussed. Informed consent was obtained. Operative Findings: As below Description of Procedure: The patient was brought to the operating room, and after induction of general anesthesia was placed in a beachchair position. A preoperative interscalene block was placed for postoperative analgesia. I examined the left shoulder. There was no gross block to passive motion or gross glenohumeral instability. The left upper extremity was prepped and draped in normal fashion. The bony outlines the acromion, distal clavicle, and coracoid process were outlined with a skin marker. The glenohumeral joint was inflated with 50 mL of saline utilizing a spinal needle from posterior approach. A posterior portal was made through a 5 mm skin incision 1 cm medial and inferior to the posterior lateral border time. A blunt trocar was used to easily into the joint. Diagnostic arthroscopy was performed. An anterior portal was made just lateral to the coracoid process entering the joint above the subscapularis tendon. The subscapularis tendon appeared to be intact. Anterior labrum was intact. The inferior recess was inspected. The posterior labrum was intact. The long head of the biceps was intact. Rotator cuff was intact on the articular surface. The arthroscope was placed into the subacromial space. A lateral portal was made 2 centimeters inferior to the anterior lateral border of the acromion. Significant bursal thickening was noted. This to be with motorized shaver. The rotator cuff appeared to be intact on the bursal surface. The soft tissue on the undersurface of the acromion was debrided with a motorized shaver and jono ctrocautery clearly defining the anterior medial and lateral borders as well as the distal clavicle. An anterior inferior acromioplasty was performed with a motorized justin starting anterolateral, then extending this posteriorly, then extending this medially. I converted to a flat acromion and this was verified in the posterior and lateral viewing portals. The distal clavicle was identified and the distal 4 mm resector with a motorized justin. The arthroscope was then removed. The portals were closed with simple 3-0 nylon sutures. A sterile dressing was applied in addition to a sling. The patient was then awoken from general anesthesia and transferred to recovery room in good condition. Blood loss was estimated at 10 mL. No complications were incurred. Sponge and needle counts were correct in the case. Juan Ramon MARTINES assisted and the major components of the case to include arm positioning, decompression, and distal clavicular resection.
[2022-02-27] MEDS: HYDROmorphone 0.5 MG/0.5 ML SYRINGE IVP PRN ×4 (09:36→10:13)
[2022-02-27 10:34] VITALS: RESP 16
[2022-02-27] MEDS ORDERED: HYDROcodone/APAP 7.5-325MG 1 EACH TAB PO ONE (11:08)
[2022-02-27] MEDS ORDERED: HYDROcodone/APAP 7.5-325MG 1 EACH TAB ONE (11:09)
[2022-02-27 11:11] VITALS: BP 127/84; PULSE 97
== END 2022-02-27 11:57 | disposition home or self-care (01) ==
LOC: OR 06:06
PROVIDERS: ATTEND Orthopaedic Surgery
DX: M75.102 Unspecified rotator cuff tear or rupture of left shoulder, not specified as traumatic (principal); G89.18 Other acute postprocedural pain; M65.812 Other synovitis and tenosynovitis, left shoulder; K21.9 Gastro-esophageal reflux disease without esophagitis; I10 Essential (primary) hypertension; E78.5 Hyperlipidemia, unspecified; M19.90 Unspecified osteoarthritis, unspecified site; Z98.890 Other specified postprocedural states; Z87.891 Personal history of nicotine dependence; Z82.49 Family history of ischemic heart disease and other diseases of the circulatory system; Z79.51 Long term (current) use of inhaled steroids; Z79.899 Other long term (current) drug therapy; Z79.1 Long term (current) use of non-steroidal anti-inflammatories (NSAID)
CPT/HCPCS: 64415; 76942; 29824; 29826; J2250; J0330; J1100; J2710; J0690; J2405; J0171; J3010; J2795; J2370; J2704; J1170; J2001

== ENCOUNTER 2022-07-25 21:15 | Emergency (ER) | payer OTHER ==
[2022-07-25 21:26] VITALS: RESP 18; TEMP 99
[2022-07-25] MEDS ORDERED: LIDOCAINE 1% INJ 10MG/ML (30 ML VIAL-PF) SQ ONE (21:48)
[2022-07-25] MEDS ORDERED: KETOROLAC 15 MG/ML 1 ML VIAL IVP STA (21:49)
[2022-07-25] MEDS ORDERED: AMOXIC-POT CLAV 875-125MG 1 EACH TAB PO STA (23:41)
--- NOTE | 2022-07-25 23:43 | ED ---
General Adult HPI - General Chief complaint: Animal Bite Stated complaint: Dog Bite Time Seen by Provider: 07/25/22 21:34 Source: patient, RN notes reviewed Mode of arrival: ambulatory Limitations: no limitations - History of Present Illness Initial comments: 42-year-old male with no significant past medical history presents to the emergency department with a chief complaint of dog bite. Patient reports the heat was extremely dog. He is reporting a laceration to his left forearm. He reports that the animal is up-to-date on vaccinations. He is unsure of his last tetanus vaccination. He denies any numbness, tingling, weakness to the extremity. He denies any anticoagulant use. - Related Data Home Medications Medication Instructions Recorded Confirmed Albuterol Inhaler [Ventolin Hfa 2 puff INHALATION RT-Q4H PRN 01/24/21 02/24/22 Inhaler] Budesonide [Pulmicort Flexhaler] 2 puff INHALATION RT-BID 01/24/21 02/24/22 Celecoxib [CeleBREX] 200 mg PO DAILY 01/24/21 02/24/22 Dextroamphetamine/Amphetamine 30 mg PO DAILY 01/24/21 02/24/22 [Adderall Xr] Famotidine 20 mg PO BID PRN 01/24/21 02/24/22 Losartan/Hydrochlorothiazide 1 tab PO DAILY 01/24/21 02/24/22 [Losartan-Hctz 100-25 mg Tab] NIFEdipine [Procardia XL] 60 mg PO HS 01/24/21 02/24/22 Omeprazole 40 mg PO DAILY 01/24/21 02/24/22 buPROPion XL [Wellbutrin XL] 150 mg PO DAILY 01/24/21 02/24/22 hydrOXYzine pamoate [hydrOXYzine 25 mg PO HS 01/24/21 02/24/22 PAMOATE] Previous Rx's Medication Instructions Recorded HYDROcodone/APAP 7.5-325MG [[place] 1 each PO Q6HR PRN #21 tab 02/27/22 7.5] Amoxic-Pot Clav 875-125Mg 1 tab PO Q12HR #20 tab 07/25/22 [Augmentin 875-125] Allergies Allergy/AdvReac Type Severity Reaction Status Date / Time No Known Allergies Allergy Verified 07/25/22 21:22 Review of Systems ROS Statement: Those systems with pertinent positive or pertinent negative responses have been documented in the HPI. ROS Other: All systems not noted in ROS Statement are negative. Past Medical History Past Medical History: GERD/Reflux, Hyperlipidemia, Hypertension Additional Past Medical History / Comment(s): LOW VITAMIN D. DIAGNOSED WITH HPV History of Any Multi-Drug Resistant Organisms: None Reported Past Surgical History: Back Surgery, Cardiac Ablation Additional Past Surgical History / Comment(s): LAMINECTOMY. 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 Absent: scleral icterus, conjunctival injection, periorbital swelling ENT exam: Present: normal exam, mucous membranes moist Neck exam: Present: normal inspection. Absent: tenderness, meningismus, lymphadenopathy Respiratory exam: Present: normal lung sounds bilaterally. Absent: respiratory distress, wheezes, rales, rhonchi, stridor Cardiovascular Exam: Present: regular rate, normal rhythm, normal heart sounds. Absent: systolic murmur, diastolic murmur, rubs, gallop, clicks GI/Abdominal exam: Present: soft, normal bowel sounds. Absent: distended, tenderness, guarding, rebound, rigid Extremities exam: Present: normal inspection, full ROM, normal capillary refill. Absent: tenderness, pedal edema, joint swelling, calf tenderness Left Upper Arm exam: Present: normal inspection, full ROM Elbow exam: Present: normal inspection, full ROM Forearm Wrist exam: Present: normal inspection, laceration (3cm laceration without active bleeding to left forearm, full ROM, tenderness to palpation, 2+ radial pulses, distal NVI ) Back exam: Present: normal inspection Neurological exam: Present: alert, oriented X3, CN II-XII intact Psychiatric exam: Present: normal affect, normal mood Skin exam: Present: warm, dry, intact, normal color. Absent: rash Course Vital Signs 07/25/22 07/26/22 21:22 00:10 Temperature 99 F Pulse Rate 86 62 Respiratory 18 18 Rate Blood Pressure 173/108 133/89 O2 Sat by Pulse 98 95 Oximetry Procedures - Laceration Laceration #1 Indication: laceration Site: other (arm ) Description: linear Depth: simple, single layer, involves muscle layer Anesthetic Used: lidocaine 1% Anesthesia Technique: local infiltration Pre-repair: wound explored Type of Sutures: nylon Size of Sutures: 5-0 Number of Sutures: 4 Technique: simple, interrupted Complications: pain Patient Tolerated Procedure: well, no complications Medical Decision Making - Medical Decision Making Was pt. sent in by a medical professional or institution (BOBBI Steen, [employer]STIC[employer] CHEMIST, urgent care, hospital, or half-way...) When possible be specific @ -[No] Did you speak to anyone other than the patient for history (EMS, parent, family, police, friend...)? What history was obtained from this source @ -[No] Did you review nursing and triage notes (agree or disagree)? Why? @ -[I reviewed and agree with nursing and triage notes] Were old charts reviewed (outside hosp., previous admission, EMS record, old EKG, old radiological studies, urgent care reports/EKG's, half-way records)? Report findings @ -[No old charts were reviewed] Differential Diagnosis (chest pain, altered mental status, abdominal pain women, abdominal pain men, vaginal bleeding, weakness, fever, dyspnea, syncope, headache, dizziness, GI bleed, back pain, seizure, CVA, palpatations, mental health, musculoskeletal)? @ -[not applicable] EKG interpreted by me (3pts min.). @ -[As above] X-rays interpreted by me (1pt min.). @ -[None done] CT interpreted by me (1pt min.). @ -[None done] U/S interpreted by me (1pt. min.). @ -[None done] What testing was considered but not performed or refused? (CT, X-rays, U/S, labs)? Why? @ -[None] What meds were considered but not given or refused? Why? @ -[None] Did you discuss the management of the patient with other professionals (professionals i.e. BOBBI Steen, PESTIC[employer] CHEMIST, lab, RT, psych nurse, social and human services assistant, petroleum inspector, teacher, chief sales officer, disability case manager)? Give summary @ -[No] Was smoking cessation discussed for >3mins.? @ -[No] Was critical care preformed (if so, how long)? @ -[No] Were there social determinants of health that impacted care today? How? (Homelessness, low income, unemployed, alcoholism, drug addiction, transportation, low edu. Level, literacy, decrease access to med. care, retirement, rehab)? @ -[No] Was there de-escalation of care discussed even if they declined (Discuss DNR or withdrawal of care, Hospice)? DNR status @ -[No] What co-morbidities impacted this encounter? (DM, HTN, Smoking, COPD, CAD, Cancer, CVA, ARF, Chemo, Hep., AIDS, mental health diagnosis, sleep apnea, morbid obesity)? @ -[None] Was patient admitted / discharged? Hospital course, mention meds given and route, prescriptions, significant lab abnormalities, going to OR and other pertinent info. @ -Discharged. This is a 42 year old male who presents to the emergency department with dog bite. Patient for history and physical exam performed while in the emergency department. Physical exam is essentially unremarkable, heart rate regular rate and rhythm, lung auscultation bilaterally, soft and non-tender. There is a 3cm laceration to L forearm with bleeding controlled. Patient had 4 sutures placed to laceration to which he tolerated well. He was given Tylenol and tetanus vaccination with symptomatic relief. I discussed the results in detail with the patient verbalized understanding and all questions and concerns were addressed. He was given a prescription for augmentin. The patient was discharged in stable condition. They were strongly encouraged to follow up with her primary care physician in 1-2 days. Case discussed with Dr. Mckeon who agrees with plan of care Undiagnosed new problem with uncertain prognosis? @ -[No] Drug Therapy requiring intensive monitoring for toxicity (Heparin, Nitro, Insulin, Cardizem)? @ -[No] Were any procedures done? @ -[No] Diagnosis/symptom? @ -dog bite - L forearm laceration Acute, or Chronic, or Acute on Chronic? @ -acute Uncomplicated (without systemic symptoms) or Complicated (systemic symptoms)? @ -uncomplicated Side effects of treatment? @ -[No] Exacerbation, Progression, or Severe Exacerbation? @ -[No] Poses a threat to life or bodily function? How? (Chest pain, [place], [place], pneumonia, PE, COPD, DKA, ARF, appy, cholecystitis, CVA, Diverticulitis, Homicidal, Suicidal, threat to staff... and all critical care pts) @ -low likelihood Disposition Clinical Impression: Dog bite Disposition: HOME SELF-CARE Condition: Stable Instructions (If sedation given, give patient instructions): Animal Bite (ED) Additional Instructions: Please return to the nearest emergency department for symptoms worsen or persist Please return to the emergency department, urgent care or primary care for suture removal in 7-10 days Prescriptions: Amoxic-Pot Clav 875-125Mg [Augmentin 875-125] 1 tab PO Q12HR #20 tab Is patient prescribed a controlled substance at d/c from ED?: No Referrals: Dipak Burr MD [Primary Care Provider] - 1-2 days Time of Disposition: 23:43
[2022-07-25] MEDS ORDERED: DIPH,PERTUS(ACELL)TETVAC-LF 0.5 ML VIAL IM ONE (23:50)
[2022-07-26 00:11] VITALS: BP 133/89; PULSE 62
== END 2022-07-26 00:11 | disposition home or self-care (01) ==
LOC: EC 21:15
DX: S51.812A Laceration without foreign body of left forearm, initial encounter (principal); K21.9 Gastro-esophageal reflux disease without esophagitis; E78.5 Hyperlipidemia, unspecified; I10 Essential (primary) hypertension; Z23 Encounter for immunization; Z79.899 Other long term (current) drug therapy; W54.0XXA Bitten by dog, initial encounter
CPT/HCPCS: 90715; 99283; 90471; 96374; 12002; J2001; J1885

== ENCOUNTER 2023-07-25 09:41 | Emergency (ER) | payer OTHER ==
[2023-07-25] MEDS: HYDROmorphone 1 MG/ML 1 ML SYRINGE IM STA (10:19)
[2023-07-25] MEDS: KETOROLAC 15 MG/ML 1 ML VIAL IM STA (10:19)
[2023-07-25] MEDS: BACITRACIN OINT 1 EACH PACKET TOPICAL ONE (10:20)
[2023-07-25 10:24] VITALS: BP 137/87; PULSE 104; RESP 18; TEMP 98.7
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
[2023-07-25] MEDS: ACET/COD 300 MG/30 MG STARTER PACK 6 TAB BTL PO STA (10:38)
== END 2023-07-25 10:43 | disposition home or self-care (01) ==
LOC: EC 09:41
DX: T20.27XA Burn of second degree of neck, initial encounter (principal); T21.22XA Burn of second degree of abdominal wall, initial encounter; T21.23XA Burn of second degree of upper back, initial encounter; X18.XXXA Contact with other hot metals, initial encounter
CPT/HCPCS: 99283; 96372 ×2; J1170; J1885

== ENCOUNTER → 2024-06-30 | Outpatient (CLI) | payer OTHER ==
--- NOTE | 2024-06-30 12:41 | XR ---
EXAMINATION TYPE: XR cervical spine comp DATE OF EXAM: 06/30/2024 12:35 PM COMPARISON: none CLINICAL INDICATION: Male, 44 years old with history of S46.912A R20.9 S13.4XXA; PHH, pain TECHNIQUE: The cervical spine was imaged in frontal, lateral, odontoid and bilateral oblique. FINDINGS: The osseous structures show normal alignment without evidence of an acute fracture. There are osteoph ytes noted throughout the cervical spine on the anterior and lateral aspects of the vertebral bodies. The intervertebral disk spaces are narrowed at multiple levels. Pedicles are intact. Soft tissues a re within normal limits. The odontoid appears intact. IMPRESSION: 1. No fracture or dislocation. 2. Mild degenerative disc disease changes of the cervical spine. [facility], , 06/30/2024 12:39 PM
--- NOTE | 2024-06-30 12:45 | XR ---
EXAMINATION TYPE: XR shoulder complete LT DATE OF EXAM: 06/30/2024 12:35 PM COMPARISON: 09/10/2021 CLINICAL INDICATION: Male, 44 years old with history of S46.912A R20.9 S13.4XXA; PHH, pain TECHNIQUE: XR shoulder complete LT; examined in AP, internally rotated and scapular Y projections. FINDINGS: No evidence of acute osseous pathology, joint dislocation, or soft tissue swelling. The remaining po rtions of the visualized chest are unremarkable. Mild degeneration changes of the acromion and dista l clavicle. IMPRESSION: 1. No acute osseous pathology. 2. Mild shoulder osteoarthrosis. [facility], , 06/30/2024 12:43 PM
== END | disposition home or self-care (01) ==
LOC: RADXRMAIN 12:19
PROVIDERS: ATTEND Emergency Medicine
DX: S46.912A Strain of unspecified muscle, fascia and tendon at shoulder and upper arm level, left arm, initial encounter (principal); S13.4XXA Sprain of ligaments of cervical spine, initial encounter; M50.30 Other cervical disc degeneration, unspecified cervical region; M19.012 Primary osteoarthritis, left shoulder; R20.9 Unspecified disturbances of skin sensation; X58.XXXA Exposure to other specified factors, initial encounter
CPT/HCPCS: 72050

== ENCOUNTER 2024-08-14 07:39 | Emergency (ER) | payer OTHER ==
[2024-08-14 07:52] VITALS: RESP 18; TEMP 98
--- NOTE | 2024-08-14 08:38 | ED ---
General Adult HPI - General Chief complaint: Recheck/Abnormal Lab/Rx Stated complaint: abd pain at injection site Time Seen by Provider: 08/14/24 07:54 Source: patient, RN notes reviewed Mode of arrival: ambulatory Limitations: no limitations - History of Present Illness Initial comments: 44-year-old male presents emergency department chief complaint of abdominal pain. Patient states that he has been having increased abdominal pain over the last couple days states started after having his weight Fil[place] injection. He states he is never had any issues he has been using for almost a year. Patient denies any fevers or chills he had increasing nausea, intra-abdominal pain, reflux issues. No chest pain or shortness of breath. - Related Data Home Medications Medication Instructions Recorded Confirmed Albuterol Inhaler [Ventolin Hfa 2 puff INHALATION RT-Q4H PRN 01/24/21 02/24/22 Inhaler] Budesonide [Pulmicort Flexhaler] 2 puff INHALATION RT-BID 01/24/21 02/24/22 Celecoxib [CeleBREX] 200 mg PO DAILY 01/24/21 02/24/22 Dextroamphetamine/Amphetamine 30 mg PO DAILY 01/24/21 02/24/22 [Adderall Xr] Famotidine 20 mg PO BID PRN 01/24/21 02/24/22 Losartan/Hydrochlorothiazide 1 tab PO DAILY 01/24/21 02/24/22 [Losartan-Hctz 100-25 mg Tab] NIFEdipine [Procardia XL] 60 mg PO HS 01/24/21 02/24/22 Omeprazole 40 mg PO DAILY 01/24/21 02/24/22 buPROPion XL [Wellbutrin XL] 150 mg PO DAILY 01/24/21 02/24/22 hydrOXYzine pamoate 25 mg PO HS 01/24/21 02/24/22 Previous Rx's Medication Instructions Recorded HYDROcodone/APAP 7.5-325MG [[place] 1 each PO Q6HR PRN #21 tab 02/27/22 7.5] Amoxic-Pot Clav 875-125Mg 1 tab PO Q12HR #20 tab 07/25/22 [Augmentin 875-125] Bacitracin Zinc/Polymyxin B 1 applic TOPICAL BID #15 gm 07/25/23 [Bacitracin-Polymyxin Ointment] Ketorolac [Toradol] 10 mg PO Q6HR #15 tab 07/25/23 Allergies Allergy/AdvReac Type Severity Reaction Status Date / Time No Known Allergies Allergy Verified 08/14/24 07:48 Review of Systems ROS Statement: Those systems with pertinent positive or pertinent negative responses have been documented in the HPI. ROS Other: All systems not noted in ROS Statement are negative. Past Medical History Past Medical History: GERD/Reflux, Hyperlipidemia, Hypertension Additional Past Medical History / Comment(s): LOW VITAMIN D. DIAGNOSED WITH HPV History of Any Multi-Drug Resistant Organisms: None Reported Past Surgical History: Back Surgery, Cardiac Ablation Additional Past Surgical History / Comment(s): LAMINECTOMY. 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 Absent: scleral icterus, conjunctival injection, periorbital swelling ENT exam: Present: normal exam, normal oropharynx, mucous membranes moist Neck exam: Present: normal inspection, full ROM. Absent: tenderness, meningismus, lymphadenopathy Respiratory exam: Present: normal lung sounds bilaterally. Absent: respiratory distress, wheezes, rales, rhonchi, stridor Cardiovascular Exam: Present: regular rate, normal rhythm, normal heart sounds. Absent: systolic murmur, diastolic murmur, rubs, gallop, clicks GI/Abdominal exam: Present: soft, tenderness, normal bowel sounds. Absent: distended, guarding, rebound, rigid Back exam: Absent: CVA tenderness (R), CVA tenderness (L) Neurological exam: Present: alert, oriented X3 Course Vital Signs 08/14/24 07:45 Temperature 98 F Pulse Rate 101 H Respiratory 18 Rate Blood Pressure 133/88 O2 Sat by Pulse 98 Oximetry Medical Decision Making - Medical Decision Making Was pt. sent in by a medical professional or institution (, PA, AUTO SPECIALTY SERVICES MANAGER, urgent care, hospital, or prison...) When possible be specific @ -No Did you speak to anyone other than the patient for history (EMS, parent, family, police, friend...)? What history was obtained from this source @ -No Did you review nursing and triage notes (agree or disagree)? Why? @ -I reviewed and agree with nursing and triage notes Were old charts reviewed (outside hosp., previous admission, EMS record, old EKG, old radiological studies, urgent care reports/EKG's, prison records)? Report findings @ -No old charts were reviewed Differential Diagnosis (chest pain, altered mental status, abdominal pain women, abdominal pain men, vaginal bleeding, weakness, fever, dyspnea, syncope, headache, dizziness, GI bleed, back pain, seizure, CVA, palpatations, mental health, musculoskeletal)? @ -Differential Abdominal Pain Men: Appendicitis, cholecystitis, diverticulosis, ischemic bowel, pancreatitis, he patitis, UTI, gastroenteritis, AAA, incarcerated hernia, bowel obstruction, constipation, inflammatory bowel, hepatitis, peptic ulcer disease, splenic infarction, perforated viscus, testicular torsion, this is not meant to be an all-inclusive list EKG interpreted by me (3pts min.). @ -None X-rays interpreted by me (1pt min.). @ -None done CT interpreted by me (1pt min.). @ -None done U/S interpreted by me (1pt. min.). @ -None done What testing was considered but not performed or refused? (CT, X-rays, U/S, labs)? Why? @ -None What meds were considered but not given or refused? Why? @ -None Did you discuss the management of the patient with other professionals (professionals i.e. , PA, AUTO SPECIALTY SERVICES MANAGER, lab, RT, psych nurse, manager social responsibility, construction project coordinator, teacher, space operations officer, senior case manager)? Give summary @ -No Was smoking cessation discussed for >3mins.? @ -No Was critical care preformed (if so, how long)? @ -No Were there social determinants of health that impacted care today? How? (Homelessness, low income, unemployed, alcoholism, drug addiction, transportation, low edu. Level, literacy, decrease access to med. care, residential, rehab)? @ -No Was there de-escalation of care discussed even if they declined (Discuss DNR or withdrawal of care, Hospice)? DNR status @ -No What co-morbidities impacted this encounter? (DM, HTN, Smoking, COPD, CAD, Cancer, CVA, ARF, Chemo, Hep., AIDS, mental health diagnosis, sleep apnea, morbid obesity)? @ -None Was patient admitted / discharged? Hospital course, mention meds given and route, prescriptions, significant lab abnormalities, going to OR and other pertinent info. @ -This patient's pain has improved. Patient left since unremarkable. It is more likely to be injection site pain that is started after injection he has no otherwise localized discomfort. Patient discharged in stable condition return parameters chayo. Undiagnosed new problem with uncertain prognosis? @ -No Drug Therapy requiring intensive monitoring for toxicity (Heparin, Nitro, Insulin, Cardizem)? @ -No Were any procedures done? @ -No Diagnosis/symptom? @Abdominal pain Acute, or Chronic, or Acute on Chronic? @ -Acute Uncomplicated (without systemic symptoms) or Complicated (systemic symptoms)? @ -Uncomplicated Side effects of treatment? @ -No Exacerbation, Progression, or Severe Exacerbation? @ -No Poses a threat to life or bodily function? How? (Chest pain, USA, DC, pneumonia, PE, COPD, DKA, ARF, appy, cholecystitis, CVA, Diverticulitis, Homicidal, Suicidal, threat to staff... and all critical care pts) @ -No - Lab Data Result diagrams: 08/14/24 08:52 08/14/24 08:52 Lab Results 08/14/24 08/14/24 Range/Units 08:52 08:52 WBC 12.35 H (4.50-10.00) 10*3/uL RBC 6.26 H (4.40-5.60) 10*6/uL Hgb 17.2 H (13.0-17.0) g/dL Hct 48.3 (39.6-50.0) % MCV 77.2 L (80.0-97.0) fL MCH 27.5 (27.0-32.0) pg MCHC 35.6 (32.0-37.0) g/dL Plt Count 243 (140-440) 10*3/uL MPV 9.9 (9.5-12.2) fL Immature Gran % (Auto) 0.2 % Neutrophils % 88.2 % Lymphocytes % 6.3 % Monocytes % 4.5 % Eosinophils % 0.5 % Basophils % 0.3 % Immature Gran # 0.02 (0.00-0.04) 10*3/uL Neutrophils # 10.89 H (1.80-7.70) 10*3/uL Lymphocytes # 0.78 L (0.90-5.00) 10*3/uL Monocytes # 0.56 (0.20-1.00) 10*3/uL Eosinophils # 0.06 (0.04-0.35) 10*3/uL Basophils # 0.04 (0.00-0.10) 10*3/uL Sodium 139 (137-145) mmol/L Potassium 3.8 (3.5-5.1) mmol/L Chloride 103 (98-107) mmol/L Carbon Dioxide 26 (22-30) mmol/L Anion Gap 10 mmol/L BUN 11 (9-20) mg/dL Creatinine 0.73 (0.66-1.25) mg/dL Est GFR (CKD-EPI)AfAm >90 (>60 ml/min/1.73 sqM) Est GFR (CKD-EPI)NonAf >90 (>60 ml/min/1.73 sqM) Glucose 108 H (74-99) mg/dL Calcium 9.2 (8.4-10.2) mg/dL Total Bilirubin 0.8 (0.2-1.3) mg/dL AST 38 (17-59) U/L ALT 92 H (4-49) U/L Alkaline Phosphatase 55 (38-126) U/L Total Protein 6.9 (6.3-8.2) g/dL Albumin 4.5 (3.5-5.0) g/dL Lipase 50 (23-300) U/L Disposition Clinical Impression: Abdominal pain Disposition: HOME SELF-CARE Condition: Stable Instructions (If sedation given, give patient instructions): Abdominal Pain (ED) Additional Instructions: Please return to the Emergency Department if symptoms worsen or any other concerns. Is patient prescribed a controlled substance at d/c from ED?: No Referrals: Dipak Burr MD [Primary Care Provider] - 1-2 days Time of Disposition: 10:39
[2024-08-14] MEDS: SODIUM CHLORIDE 0.9% 1,000 ML IV ONE (08:50)
[2024-08-14 08:59] LABS: Basophils # (A) 0.04 10*3/uL (0.00-0.10); Basophils % (A) 0.3 %; Eosinophils # (A) 0.06 10*3/uL (0.04-0.35); Eosinophils % (A) 0.5 %; HCT 48.3 % (39.6-50.0); HGB 17.2 g/dL (13.0-17.0); Lymphocytes # (A) 0.78 10*3/uL (0.90-5.00); Lymphocytes % (A) 6.3 %; MCH 27.5 pg (27.0-32.0); MCHC 35.6 g/dL (32.0-37.0); MCV 77.2 fL (80.0-97.0); Mean Platelet Volume 9.9 fL (9.5-12.2); Monocytes # (A) 0.56 10*3/uL (0.20-1.00); Monocytes % (A) 4.5 %; Neutrophils # (A) 10.89 10*3/uL (1.80-7.70); Neutrophils % (A) 88.2 %; Platelet Count 243 10*3/uL (140-440); RBC 6.26 10*6/uL (4.40-5.60); RDW 12.6 % (11.5-14.5); WBC 12.35 10*3/uL (4.50-10.00)
[2024-08-14 09:19] LABS: ALT 92 U/L (4-49); AST 38 U/L (17-59); African American GFR (CKD) >90 (>60 ml/min/1.73 sqM); Albumin 4.5 g/dL (3.5-5.0); Alkaline Phosphatase 55 U/L (38-126); Anion Gap 10 mmol/L; Blood Urea Nitrogen 11 mg/dL (9-20); Calcium 9.2 mg/dL (8.4-10.2); Carbon Dioxide 26 mmol/L (22-30); Chloride 103 mmol/L (98-107); Glucose 108 mg/dL (74-99); Lipase 50 U/L (23-300); Non-African American GFR(CKD) >90 (>60 ml/min/1.73 sqM); Potassium 3.8 mmol/L (3.5-5.1); Sodium 139 mmol/L (137-145); Total Bilirubin 0.8 mg/dL (0.2-1.3); Total Protein 6.9 g/dL (6.3-8.2)
[2024-08-14 11:15] VITALS: BP 128/82; PULSE 77
== END 2024-08-14 11:15 | disposition home or self-care (01) ==
LOC: EC 07:39
DX: R10.9 Unspecified abdominal pain (principal)
CPT/HCPCS: 36415; 80053; 83690; 85025; 96360; 99284